=== PATIENT | female | born 2000 | race Caucasian/White ===

== ENCOUNTER 2022-12-24 14:12 | Emergency (ER) | payer OTHER ==
[~2022-12-24] VITALS: Ht 162.5 cm; Wt 61.2 kg
[2022-12-24 14:37] LABS: BILIRUBIN Negative (Negative); BLOOD Negative (Negative); CLARITY Clear (Clear); COLOR Yellow (Yellow); GLUCOSE Negative (Negative); KETONE Negative (Negative); LEUKO ESTERASE Trace (Negative); NITRITE Negative (Negative); PH 6.5 (4.5-8.0); SPECIFIC GRAVITY 1.025 (1.001-1.030)
[2022-12-24 14:44] LABS: BACTERIA 1+; MUCOUS 1+
[2022-12-24 16:07] LABS: HEMATOCRIT 36.9 % (37.0-47.0); MEAN CELL VOLUME 82.6 fl (81.0-99.0); MEAN CORPUSCULAR HGB 26.4 pg (27.0-31.0); MEAN PLATELET VOLUME 9.7 fl (9.6-12.3); PLATELET COUNT AUTOMATED 191 10*3/uL (130-400); RED BLOOD COUNT 4.47 10*6/uL (4.10-5.10); RED CELL DISTRI WIDTH 13.6 % (0-14.5); WHITE BLOOD COUNT 15.4 10*3/uL (4.8-10.8)
[2022-12-24 16:08] LABS: MANUAL DIFF REFLEX YES
[2022-12-24 16:18] LABS: ALKALINE PHOSPHATASE 269 U/L (46-116); BUN 10 mg/dl (9-23); CHLORIDE 105 mmol/L (98-107); LIPASE 72 U/L (12-53); POTASSIUM 4.2 mmol/L (3.4-5.1); SGPT/ALT 245 U/L (10-49); TOTAL PROTEIN 6.7 gm/dL (6.0-8.0)
[2022-12-24 16:54] LABS: ATYPICAL LYMPHS 60 % (0-0); TOTAL CELLS COUNTED 100 #CELLS
[2022-12-24 16:55] LABS: PLATELET SUFFICIENCY NORMAL (NORMAL)
[2022-12-24 16:56] LABS: POLYCHROMASIA SLIGHT
[2022-12-24 16:57] LABS: STOMATOCYTE FEW
[2022-12-24] MEDS ORDERED: DOXYCYCLINE HY100 M3 PO (18:28)
== END 2022-12-24 18:43 | disposition home or self-care (01) ==
LOC: ED 14:12
PROVIDERS: Family Medicine
DX: H66.91 Otitis media, unspecified, right ear (principal); B27.90 Infectious mononucleosis, unspecified without complication; N39.0 Urinary tract infection, site not specified; F17.200 Nicotine dependence, unspecified, uncomplicated

== ENCOUNTER 2023-08-05 21:40 | Emergency (ER) | payer OTHER ==
[~2023-08-05] VITALS: Ht 167.6 cm; Wt 65.8 kg
[~2023-08-05 21:40] MED LIST: DOXYCYCLINE HY100 M3 PO
[2023-08-05] MEDS ORDERED: TRAZODONE100 MG PO (21:42)
[2023-08-05] MEDS ORDERED: PROZAC40 M1 PO (21:43)
[2023-08-05 22:25] LABS: BASO # 0.1 10*3/uL (0.0-0.1); BASO % 0.6 % (0.0-1.0); EOS % 0.1 % (1.0-4.0); HEMATOCRIT 39.7 % (37.0-47.0); LYMPH # 3.9 10*3/uL (1.3-4.4); LYMPH % 39.8 % (27.0-41.0); MEAN CELL VOLUME 86.9 fl (81.0-99.0); MEAN CORPUSCULAR HGB 29.1 pg (27.0-31.0); MEAN CORPUSCULAR HGB CONC 33.5 g/dl (33.0-37.0); MEAN PLATELET VOLUME 9.3 fl (9.6-12.3); MONO # 0.6 10*3/uL (0.1-1.0); MONO % 5.7 % (3.0-9.0); NEUT # 5.1 10*3/uL (2.3-7.9); NEUT % 53.1 % (47.0-73.0); PLATELET COUNT AUTOMATED 238 10*3/uL (130-400); RED BLOOD COUNT 4.57 10*6/uL (4.10-5.10); RED CELL DISTRI WIDTH 13.5 % (0-14.5); WHITE BLOOD COUNT 9.7 10*3/uL (4.8-10.8)
[2023-08-05 22:49] LABS: ALKALINE PHOSPHATASE 57 U/L (46-116); BUN 10 mg/dl (9-23); CHLORIDE 110 mmol/L (98-107); ETHYL ALCOHOL 120.2 mg/dl (<3); POTASSIUM 3.6 mmol/L (3.4-5.1); SGPT/ALT 7 U/L (10-49); TOTAL PROTEIN 6.9 gm/dL (6.0-8.0)
== END 2023-08-05 23:05 ==
LOC: ED 21:40
PROVIDERS: Family Medicine
DX: T65.891A Toxic effect of other specified substances, accidental (unintentional), initial encounter (principal); F32.A Depression, unspecified; F41.9 Anxiety disorder, unspecified; Y92.89 Other specified places as the place of occurrence of the external cause